=== PATIENT | female | born 1970 | race American Indian/Alaskan Native ===

== ENCOUNTER 2018-05-27 06:20 | Day surgery (SDC) | payer MEDICARE, OTHER ==
[~2018-05-27 06:20] MED LIST: ANCEF/STERILE WATER 2 GM/20 ML 2 GM/20 ML SYRINGE IV NR; NACL 0.9% 1000 ML 1,000 ML IV SCH
[2018-05-27] MEDS ORDERED: HEPARIN/NS 5000 UNIT/500ML(CATH LAB) 1,000 ML IR ONE (08:48)
[2018-05-27] MEDS: XYLOCAINE 2% INFILTRATI ONE ×2 (09:18→09:26)
[2018-05-27] MEDS: VERSED ONE ×2 (09:18→09:25)
[2018-05-27] MEDS: SUBLIMAZE ONE ×2 (09:18→09:25)
[2018-05-27] MEDS ORDERED: HEPARIN 10,000 UNITS/10 ML ONE (09:33)
--- NOTE | 2018-05-27 10:19 | Operative Report ---
Operative Report Operative Report: Date of procedure: 05/27/2018 Pre-operative diagnosis: Mechanical malfunction surgically created hemodialysis shunt and arm Post-operative diagnosis: Same Procedure name(s): Percutaneous fistulogram hemodialysis right arm with balloon angioplasty of the peripheral dialysis circuit, intravascular ultrasound of AV graft, right axillary and subclavian vein, and superior vena cava Surgeon: Afshin Kee MD Environmental Coordinator: None Anesthesia: Moderate sedation starting time 0925 termination time 0956 total moderate sedation time 31 minutes EBL: Minimal Specimen(s): None Complications: None Findings: 80% stenosis of the venous outflow tract at the central end of a previously placed venous outflow stent in the axillary vein successfully treated with balloon angioplasty reduction to less than 10% residual stenosis access with much more pronounced thrill and bruit post angioplasty. Procedure: The patient in the supine position with the right arm extended the extremity was prepped and draped using standard sterile technique. Ultrasound was used to identify the appropriate site for cannulation and still functioning AV access and using duplex guidance and micropuncture technique the AV graft was accessed and wire was passed proximally into the superior vena cava. I upsized to a 6 Kitt[place] introducer.. Because of the patient's history of anaphylaxis with IV contrast none was administered. I then exchanged the 0.035 wire for a 0.014 spartacore wire which was easily advanced into the right atrium. The intravascular ultrasound was then advanced throughout the entire access all the way to the right atrium and then withdrawn interrogating the entire venous system throughout its entire length. The intravascular ultrasound revealed an 80% stenosis at the venous to stent junction at the axillary vein. I subsequently heparinized the patient and then treated the stenotic lesion with an 8 x 4 balloon with considerable improvement in the quality of fistula flow and thrill and softening of the pulsatility. Repeat IVUS interrogation showed almost complete resolution of the stenosis with less than 10% residual. I then removed all guidewires and catheters and extracted the sheath over a pursestring chromic suture. Patient was then returned the recovery room with him now much more functional AV access.
--- NOTE | 2018-05-27 10:24 | Short Stay Summary ---
Short Stay Documentation Date of service: 05/27/18 Narrative H&P: Patient admitted to the [facility] for outpatient treatment of malfunctioning AV shunt patient with history of anaphylaxis to IV contrast therefore we will used intravascular ultrasound and duplex guidance to proceed with treatment. Short stay form filled out - Allergies and Medications Current Medications: Allergies Iodinated Contrast- Oral and IV Dye Allergy (Verified 03/02/18 14:23) Hives Sulfa (Sulfonamide Antibiotics) Allergy (Verified 03/02/18 14:23) Vomiting sulfamethoxazole [From Bactrim] Allergy (Verified 03/02/18 14:23) Vomiting trimethoprim [From Bactrim] Allergy (Verified 03/02/18 14:23) Vomiting insulin glargine [From Lantus U-100 Insulin] Adverse Reaction (Verified 03/04/18 08:52) Unknown PT STATES IT HAPPENED SEVERAL YEARS AGO - SHE HAD PASSED OUT AFTER INJECTION AND WAS TOLD BY HER DOCTOR NOT TO USE AGAIN Home Medications Medication Instructions Recorded Confirmed Last Taken Type Atorvastatin Calcium 80 mg PO QHS 03/02/18 05/27/18 05/25/18 History Carvedilol [Coreg] 6.25 mg PO BID 03/02/18 05/27/18 05/25/18 History Clopidogrel Bisulfate [Clopidogrel] 75 mg PO DAILY 03/02/18 05/27/18 05/25/18 History Detemir (Nf) [Levemir (Nf)] 22 units SC QHS 03/02/18 05/27/18 05/25/18 History Sevelamer Carbonate 800 mg PO AC 03/02/18 05/27/18 05/25/18 History Aspirin EC [Aspirin Enteric Coated 81 mg PO QDAY #30 tablet 03/05/18 05/27/18 05/25/18 Rx TAB] Cinacalcet [Sensipar] 30 mg PO QDAY 05/27/18 05/27/18 05/25/18 History Active Medications Cefazolin Sodium (Ancef/Sterile Water 2 Gm/20 Ml) 2 gm in 20 mls @ 80 mls/hr IV PREOP NR; Protocol Stop: 05/27/18 23:59 Sodium Chloride (Nacl 0.9% 1000 Ml) 1,000 mls @ 42 mls/hr IV DIRECT RUTH - Brief post op/procedure progress note Date of procedure: 05/27/18 Procedure: Pre-operative diagnosis: Mechanical malfunction surgically created hemodialysis shunt and arm Post-operative diagnosis: Same Procedure name(s): Percutaneous fistulogram hemodialysis right arm with balloon angioplasty of the peripheral dialysis circuit, intravascular ultrasound of AV graft, right axillary and subclavian vein, and superior vena cava Surgeon: Afshin Kee MD Geoscience Professor: None Anesthesia: Moderate sedation starting time 0925 termination time 0956 total moderate sedation time 31 minutes EBL: Minimal Specimen(s): None Complications: None Findings: 80% stenosis of the venous outflow tract at the central end of a previously placed venous outflow stent in the axillary vein successfully treated with balloon angioplasty reduction to less than 10% residual stenosis access with much more pronounced thrill and bruit post angioplasty. Procedure: The patient in the supine position with the right arm extended the extremity was prepped and draped using standard sterile technique. Ultrasound was used to identify the appropriate site for cannulation and still functioning AV access and using duplex guidance and micropuncture technique the AV graft was accessed and wire was passed proximally into the superior vena cava. I upsized to a 6 [place]ones[place] introducer.. Because of the patient's history of anaphylaxis with IV contrast none was administered. I then exchanged the 0.035 wire for a 0.014 spartacore wire which was easily advanced into the right atrium. The intravascular ultrasound was then advanced throughout the entire access all the way to the right atrium and then withdrawn interrogating the entire venous system throughout its entire length. The intravascular ultrasound revealed an 80% stenosis at the venous to stent junction at the axillary vein. I subsequently heparinized the patient and then treated the stenotic lesion with an 8 x 4 balloon with considerable improvement in the quality of fistula flow and thrill and softening of the pulsatility. Repeat IVUS interrogation showed almost complete resolution of the stenosis with less than 10% residual. I then removed all guidewires and catheters and extracted the sheath over a pursestring chromic suture. Patient was then returned the recovery room with him now much more functional AV access. 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
[2018-05-27 11:11] VITALS: BP 149/54
== END 2018-05-27 11:30 | disposition home or self-care (01) ==
LOC: CATHLABREC 06:20
PROVIDERS: ATTEND Surgery Vascular Surgery
DX: T82.858A Stenosis of other vascular prosthetic devices, implants and grafts, initial encounter (principal); I13.2 Hypertensive heart and chronic kidney disease with heart failure and with stage 5 chronic kidney disease, or end stage renal disease; E11.22 Type 2 diabetes mellitus with diabetic chronic kidney disease; N18.6 End stage renal disease; I50.9 Heart failure, unspecified; T82.868A Thrombosis due to vascular prosthetic devices, implants and grafts, initial encounter; I25.10 Atherosclerotic heart disease of native coronary artery without angina pectoris; E66.9 Obesity, unspecified; Z68.31 Body mass index [BMI] 31.0-31.9, adult; Z96.642 Presence of left artificial hip joint; Z88.2 Allergy status to sulfonamides; Z79.899 Other long term (current) drug therapy; Z79.82 Long term (current) use of aspirin; Z95.0 Presence of cardiac pacemaker; Z95.5 Presence of coronary angioplasty implant and graft; Z98.890 Other specified postprocedural states; Z83.3 Family history of diabetes mellitus; Z84.1 Family history of disorders of kidney and ureter; Z82.49 Family history of ischemic heart disease and other diseases of the circulatory system; Z88.8 Allergy status to other drugs, medicaments and biological substances; Z86.2 Personal history of diseases of the blood and blood-forming organs and certain disorders involving the immune mechanism
CPT/HCPCS: 36415; 36902; 37252; 76937; 82962; 84132; 99156; 99157; C1725; C1753; C1769; C1894; J1644; J2250; J3010; J7030